=== PATIENT | female | born 1965 | race Asian ===

== ENCOUNTER 2019-08-28 07:58 | Outpatient (CLI) | payer OTHER, SELFPAY ==
--- NOTE | 2019-09-09 02:06 | SLEEP_ITS ---
CPAP Titration DATE OF STUDY: 08/28/2019 REASON FOR STUDY: Prior home sleep test July 24, showing moderate obstructive sleep apnea syndrome G47.33 with desaturation to 82%, AHI is 15.1. HISTORY: This patient is a 54-year-old female, 65 inches tall, weighing 155 pounds with a body mass index of 25.8. On July 24, 2019, a home sleep test showed an AHI of 5.1 with significant desaturation to 82% with over 1 hour of time spent below 88%. She has extreme daytime sleepiness. She presents now for a CPAP titration. MEDICAL COMORBIDITIES: Asthma, insomnia, multiple allergies. MEDICATIONS: 1. Astelin 137 mcg 2 sprays each nostril b.i.d. 2. Flovent HFA 110 mcg 1 puff twice a day. 3. Estradiol 0.0375 mg twice a week. 4. Vitamin D daily. 5. Calcium daily. HABITS: No history of tobacco. No caffeine or alcohol. No recreational drugs. DESCRIPTION OF THE STUDY: On the [place] Sleepiness Scale, her score was 20. This was conducted as an attended CPAP titration in the lab with the [employer] multiple channel system including EOG, EEG, submental EMG, EKG, nasal and oral airflow using thermistors and nasal pressure sensors, chest and abdominal belts for body position data, pulse oximetry, and video monitoring. The study was scored using CMS guidelines. Duration of the study was 419.9 minutes. Sleep time was 382.7 minutes. Sleep efficiency was 91.1%. Sleep latency was short at 2.7 minutes. No indication of a sleeping pill was documented. The REM latency was slightly short at 72.5 minutes. She had 22 awakenings. She spent 8.3% of the study awake after sleep onset 34.5 minutes. Sleep architecture showed 5.8% stage I sleep, 57.6% stage II sleep, 3.4% stage III sleep and 24.9% stage REM. The patient spent 67% of the study supine, the remainder was nonsupine. Sleep architecture was relatively normal with a short sleep latency, a short REM latency, 4 REM cycles, and consolidated sleep. The apnea-hypopnea index was 1.6, the obstructive index was 0.8 and the central index was 0.6. The patient had no events in supine REM. She had 1 central apnea and 1 obstructive hypopnea in nonsupine REM for an index of 1.8. She had 1 obstructive apnea and 3 central apneas, 1 mixed apnea and 2 obstructive hypopneas in supine non-REM for an index of 1.7. She had 1 obstructive hypopnea in nonsupine non-REM for an index of 1.7. The supine index was 1.5, nonsupine index 1.7. Lowest desaturation was 87% and the patient had less than a minute below 88%. She had 9 desaturations of 4% or greater for an index of 1.3. Mean saturation was 94.5%. This is significantly improved compared to baseline. AROUSALS: 79 arousals for an index of 11.3. There was 1 apnea for an index of 0.1, 1 hypopnea for an index of 0.1, 3 snores for an index of 0.4, 53 spontaneous for an index of 7.6, and 21 limb movements for an index of 3.0. LIMB MOVEMENTS: 89 limb movements for an index of 14. The patient had 1 periodic limb movement for an index of 0.2. EKG: Sinus rhythm, mean heart rate 61. No arrhythmia. EEG: Unremarkable. During this titration, the patient wore a small AirFit N10 nasal mask with heated humidity. She slept in the lateral and supine positions. REM was achieved. CPAP started at 5 and ended at 6 cm. At 6 cm, the patient spent 1 hour 24 minutes in bed, 31 minutes in REM, 48 minutes in non-REM, had 1 central apnea, 1 hypopnea for an index of 1.5. Sleep efficiency was 96%. IMPRESSION: 1. This full night CPAP titration shows an optimal pressure of 6 cm using a small AirFit N10 nasal mask and heated humidity. She had excellent sleep consolidation and elimination of events. She had profound hypoxemia on the initial study and this was eliminated during this study. We
== END 2019-08-28 07:59 | disposition home or self-care (01) ==
LOC: ANHCSM 07:59
PROVIDERS: PCP Family Medicine; Visit Provider Family Medicine
DX: G47.33 Obstructive sleep apnea (adult) (pediatric) (principal)
CPT/HCPCS: 95811

== ENCOUNTER → 2020-04-26 09:07 | Outpatient (CLI) | payer OTHER, SELFPAY ==
--- NOTE | ~2020-04-26 | CT_ITS ---
EXAMINATION: CT chest wo con DATE: 04/26/2020 09:24 INDICATION: Follow-up pulmonary nodules TECHNIQUE: Computed tomography (CT) of the chest was performed without intravenous contrast. The dose -length product was 233.83 mGy-cm. Automated exposure control and iterative reconstruction technique were employed. COMPARISON: CT dated 09/04/2018 FINDINGS: No significant pleural or pericardial effusion. No thoracic lymphadenopathy. The upper abdo men is unremarkable. There is a left upper lobe mass measuring 13 x 11 mm which is new compared with prior examination. No endobronchial lesions. Stable 7 mm nodule of the minor fissure, image 63. There is an 8 mm left lower lobe nodule, image 82, increased in size stable 3 mm pleural-based left upper lobe nodule, image 50.. There is a 4 mm nodule left lower lobe, image 82. There is a 3 mm perifissura l nodule of the right lower lobe superior segment, image 48, not seen on prior examination. No endobr onchial lesions are identified. IMPRESSION: 1. New 13 mm left upper lobe nodule. Enlarging 8 mm left lower lobe nodule. Additional bilateral pulm onary nodules are stable. Malignancy not excluded. Recommend follow-up percutaneous biopsy or PET/CT scan. Reviewed, dictated and finalized at location B. IMPRESSION: 1. New 13 mm left upper lobe nodule. Enlarging 8 mm left lower lobe nodule. Add itional bilateral pulmonary nodules are stable. Malignancy not excluded. Recomm end follow-up percutaneous biopsy or PET/CT scan.
== END ==
PROVIDERS: PCP Family Medicine; Visit Provider Family Medicine
DX: R91.1 Solitary pulmonary nodule (principal)
CPT/HCPCS: 71250

== ENCOUNTER 2021-04-07 14:36 | Outpatient (CLI) | payer OTHER, SELFPAY ==
--- NOTE | ~2021-04-07 | MM_ITS ---
EXAMINATION: MM screening [facility] BI w anum HISTORY: Screening TECHNIQUE: Craniocaudal and mediolateral oblique 3-D tomosynthesis images were obtained and synthetic 2-D images were generated. CAD analysis was submitted and interpreted. COMPARISON: Comparison to multiple prior studies sequentially, with oldest reviewed study dated 02/2015. BREAST PARENCHYMAL COMPOSITION: There are scattered areas of fibroglandular density. FINDINGS: There is no evidence of suspicious mass, calcification, or architectural distortion to sugg est malignancy in either breast. There has been no suspicious interval change. IMPRESSION: 1. No mammographic evidence of malignancy. 2. Recommend routine screening mammography in one year. BI-RADS Category 1: Negative Reviewed, dictated and finalized at location A.
== END 2021-04-07 14:37 | disposition home or self-care (01) ==
LOC: ANHIMG 14:51
PROVIDERS: PCP Family Medicine; Visit Provider Obstetrics & Gynecology
DX: Z12.31 Encounter for screening mammogram for malignant neoplasm of breast (principal)
CPT/HCPCS: 77063; 77067

== ENCOUNTER → 2021-12-01 14:08 | Outpatient (CLI) | payer OTHER, SELFPAY ==
--- NOTE | ~2021-12-01 | XR_ITS ---
EXAMINATION: XR chest 2V 12/01/2021 14:20 INDICATION: Shortness of breath PROCEDURE: 2 view chest COMPARISON: 19/11/2007 FINDINGS: The lungs are clear. The cardiomediastinal silhouette is within normal limits. There are no pleural effusions. There is no pneumothorax suspected. IMPRESSION: 1: NO ACUTE CARDIOPULMONARY DISEASE. Reviewed, dictated and finalized at location A.
== END ==
PROVIDERS: PCP Family Medicine; Visit Provider Family Medicine
DX: G47.34 Idiopathic sleep related nonobstructive alveolar hypoventilation (principal)
CPT/HCPCS: 71046

== ENCOUNTER → 2022-01-26 17:19 | Outpatient (CLI) | payer OTHER, SELFPAY ==
--- NOTE | ~2022-01-26 | XR_ITS ---
XR hip RT 2V w AP pelvis DATE: 01/26/2022 17:33 INDICATION: Right hip pain TECHNIQUE: AP pelvis. AP and lateral right hip. COMPARISON: None FINDINGS: Normal alignment at the pubic symphysis and sacroiliac joints. No pelvic fracture or bone d estruction. Hip joint spaces are symmetric and relatively preserved. No fracture, dislocation, avascular necrosis or bone destruction of the right hip. IMPRESSION: No significant abnormality Reviewed, dictated and finalized at location B. IMPRESSION: No significant abnormality
== END ==
PROVIDERS: PCP Family Medicine; Visit Provider Family Medicine
DX: M25.551 Pain in right hip (principal)
CPT/HCPCS: 73502

== ENCOUNTER 2022-06-21 09:00 | Outpatient (RCR) | payer OTHER, SELFPAY ==
--- NOTE | 2022-03-31 16:58 | PTOPEVAL1 ---
Assessment and note entered by Janneth Raegan, PT, DPT Evaluation Information Assessment Status Evaluation Diagnosis R hip pain Onset 1+ year Subjective Information Pt reports R hip pain that has been consistent for 1 year, worsening in the last couple of months. Pt reports popping and clicking in her anterior groin pain, this increases when she walks fast. Pt reports deep buttock pain when she sits for prolonged time. Pt states she feels uneven when she is walking. Reported Pain Level Pain Score 4: Self Report Assessment PT Clinical Summary Po presents to therapy today for her initial evaluation with a diagnosis of R hip pain. Today she demonstrates mildly decreased hip ROM including rotation and extension. She also demonstrates minor strength deficits of her hips globally. She ambulated with a shortened stride length, has a shuffled gait pattern with decreased heel clearance, and increased lateral pelvic sway . Po will benefit from skilled physical to address the deficits noted above, to improve pain, to limit impairment, and to return to her baseline function of unlimited mobility. Plan of Care Interventions Gait Training,Manual Therapy PT Services Indicated Yes Treatment Frequency and 1x/wk for 4 wks Duration These treatments will address the objective and functional deficits as defined above. The patient will be advanced safely and appropriately in order for the patient to progress towards his/her prior level of function. Additional exercises will be introduced and as well as a comprehensive home exercise program upon discharge, if needed, ?to ensure carryover of functional gains achieved in the clinic. This treatment plan has been reviewed and agreement upon by the patient.
--- NOTE | 2022-04-28 09:44 | PTOPDC ---
Assessment and note entered by Janneth Reagan, PT, DPT Evaluation Information Assessment Status Discharge Diagnosis R hip pain Onset 1+ year Subjective Information Pt states she things therapy is working, she states she feels much better and has less pain. Pt states she can sit for longer now before she feels a tightness in her buttock. She reports no pain at rest. She states the R leg still feels heavier when walking long distances, but it is still better. Reported Pain Level Pain Score 0: Self Report Assessment PT Clinical Summary Po presents to therapy today for her progress report following 4 visits of skilled thearpy to treat her diagnosis of R hip pain. Today she reports improvements in her hip pain as well as the popping sensations she was feeling. She demonstrates an improved gait pattern with a lengthened stride length and decreased pelvic motion. She continues to demonstrates weakness in her kennedy hip throughout but this is progressing. Throughout her treatments she continues to require moderate cueing to avoid substitutions. Pt would like to continue her HEP at home and follow up in a month. Plan of Care Interventions Gait Training,Manual Therapy PT Services Indicated Yes Treatment Frequency and follow up in one month Duration
--- NOTE | 2022-04-28 09:50 | PTOPPROG ---
Assessment and note entered by Janneth Reagan, PT, DPT Evaluation Information Assessment Status Progress Diagnosis R hip pain Onset 1+ year Subjective Information Pt states she things therapy is working, she states she feels much better and has less pain. Pt states she can sit for longer now before she feels a tightness in her buttock. She reports no pain at rest. She states the R leg still feels heavier when walking long distances, but it is still better. Assessment PT Clinical Summary Po presents to therapy today for her progress report following 4 visits of skilled thearpy to treat her diagnosis of R hip pain. Today she reports improvements in her hip pain as well as the popping sensations she was feeling. She demonstrates an improved gait pattern with a lengthened stride length and decreased pelvic motion. She continues to demonstrates weakness in her kennedy hip throughout but this is progressing. Throughout her treatments she continues to require moderate cueing to avoid substitutions. Pt would like to continue her HEP at home and follow up in a month. Plan of Care Interventions Gait Training,Manual Therapy PT Services Indicated Yes Treatment Frequency and follow up in one month Duration These treatments will address the objective and functional deficits as defined above. The patient will be advanced safely and appropriately in order for the patient to progress towards his/her prior level of function. Additional exercises will be introduced and as well as a comprehensive home exercise program upon discharge, if needed, ?to ensure carryover of functional gains achieved in the clinic. This treatment plan has been reviewed and agreement upon by the patient.
--- NOTE | 2022-06-21 09:56 | PTOPDC ---
Assessment and note entered by Janneth Reagan, PT, DPT Evaluation Information Assessment Status Discharge Diagnosis R hip pain Onset 1+ year Subjective Information Pt states she has felt great after her last therapy visit. She still gets intermittent popping and clicking pains in her hip. She states she still gets sore when she is walking for too long. She states 0/10 pain at rest, and 1/10 when moving . Reported Pain Level Pain Score 0: Self Report Assessment PT Clinical Summary Po presents to therapy today for her progress report following 6 visits of therapy and intermittent participation in her HEP. Today she reports poor compliance with her HEP in the last month. She reports 1/10 pain at its worst, and this is only with isolated hip abduction with ext rot. She continues to have minor weakness in her R glute med when compared to her L. Her home exercises were progressed and she was instructed to continue these regularly. Po is to be discharged from skilled therapy services at this time, she was instructed to follow up with her referring provider if symptoms worsen. Plan of Care PT Services Indicated No Treatment Frequency and to be discharged Duration
== END 2022-06-22 12:34 | disposition home or self-care (01) ==
LOC: ANHGOSHPT 09:00
PROVIDERS: PCP Family Medicine; Visit Provider Family Medicine
DX: M25.551 Pain in right hip (principal)
CPT/HCPCS: 97110; 97112; 97140; 97161; 97530

== ENCOUNTER → 2022-08-18 08:12 | Outpatient (CLI) | payer OTHER, SELFPAY ==
--- NOTE | ~2022-08-18 | CT_ITS ---
EXAMINATION: CT soft tissue neck chest w DATE: 08/18/2022 08:45 INDICATION: Left neck mass. TECHNIQUE: Computed tomography (CT) of the neck and chest was performed with 75 mL Omnipaque-350 intr avenous contrast. Automated exposure control and iterative reconstruction technique were employed. Th e dose-length product was 751.08 mGy-cm. COMPARISON: Chest CT 04/26/2020 FINDINGS: CT NECK: There is anteroposterior elongation of the ocular globes. There are likely changes of ocular lens replacement surgeries. There are no pathologically enlarged lymph nodes. There is 0% stenosis o f the proximal internal carotid arteries relative to normal distal artery lumen diameters. There is m oderate cervical spondylosis. CT CHEST: There is mild scarring at the lung apices. There is mild atelectasis bilaterally with a dep endent predominance. There are stable 7 mm and 5 mm nodules in right middle lobe. There is a stable 4 mm nodule in left lower lobe. No pleural effusion. The heart size is normal. No pericardial effusion . There is mild thoracic spondylosis. IMPRESSION: 1. No abnormal neck mass. 2. Stable pulmonary nodules, likely benign. Reviewed, dictated and finalized at location A. [employer]
== END ==
PROVIDERS: PCP Family Medicine; Visit Provider Obstetrics & Gynecology
DX: R91.8 Other nonspecific abnormal finding of lung field (principal)
CPT/HCPCS: 70491; 71260; Q9967

== ENCOUNTER 2022-11-27 08:34 | Outpatient (CLI) | payer OTHER, SELFPAY ==
[2022-11-27 09:54] LABS: Kit Draw Collected
== END 2022-11-27 08:35 | disposition home or self-care (01) ==
LOC: ANHGOSHLAB 08:36
PROVIDERS: PCP Family Medicine; Visit Provider Family Medicine
DX: Z00.00 Encounter for general adult medical examination without abnormal findings (principal); Z78.0 Asymptomatic menopausal state
CPT/HCPCS: 36415

== ENCOUNTER 2023-12-22 11:29 | Outpatient (CLI) | payer OTHER, SELFPAY ==
--- NOTE | ~2023-12-22 | MM_ITS ---
EXAMINATION: MM screening [facility] BI w anum HISTORY: Screening TECHNIQUE: Craniocaudal and mediolateral oblique 3-D tomosynthesis images were obtained and synthetic 2-D images were generated. CAD analysis was submitted and interpreted. COMPARISON: No prior mammogram is available for comparison at this institution. BREAST PARENCHYMAL COMPOSITION: Not dense: There are scattered areas of fibroglandular density. FINDINGS: There is no evidence of suspicious mass, calcification, or architectural distortion to sugg est malignancy in either breast. There has been no suspicious interval change. IMPRESSION: 1. No mammographic evidence of malignancy. 2. Recommend routine screening mammography in one year. BI-RADS Category 1: Negative Reviewed, dictated and finalized at location B.
== END 2023-12-22 11:30 | disposition home or self-care (01) ==
PROVIDERS: PCP Family Medicine; Visit Provider Obstetrics & Gynecology
DX: Z12.31 Encounter for screening mammogram for malignant neoplasm of breast (principal)
CPT/HCPCS: 77063; 77067

== ENCOUNTER 2024-01-18 07:33 | Outpatient (CLI) | payer OTHER, SELFPAY ==
--- NOTE | ~2024-01-18 | DEXA_ITS ---
Bone Density Report Name: LYNN HUFFMAN Age: 58 Sex: Female Ethnicity: White Date of : 1965 Indication: postmenopausal; screening for osteoporosis; asthma or emphysema; hysterectomy; Referring Provider: JIMMIE MOHAN Study: Bone densitometry was performed. Exam Date: January 18, 2024 Accession number: [id number] Bone Density: Region BMD T-score Z-score Classification AP Spine(L1-L4) 1.122 0.7 1.9 Normal Femoral Neck (Left) 0.738 -1.0 0.1 Normal Total Hip (Left) 0.928 -0.1 0.7 Normal Femoral Neck (Right) 0.736 -1.0 0.1 Normal Total Hip (Right) 0.949 0.1 0.8 Normal Total Hip Mean 0.939 0.0 0.8 Normal World Health Organization criteria for BMD impression classify patients as: Normal (T-score at or above -1.0), Osteopenia (T-score between -1.0 and -2.5), or Osteoporosis (T-score at or below -2.5). 10-year Fracture Risk: FRAX not reported because: All T-scores for Spine Total, Hip Total, Femoral Neck at or above -1.0 Clinical Information Provided by Patient: Has used the following medications: Vitamin D Has the following medical conditions: Asthma or Emphysema, Hysterectomy Patient maximum height was 65 Menopause Age: 45 Does not regularly consume dairy products Drinks caffeinated beverages Onset of menses at age 14 Number of children 3 Impression: The patient has normal bone mass. Discussion: BONE DENSITY IS ABOVE THE MINIMUM DESIRABLE LEVEL AT ALL SKELETAL SITES TESTED. This patient?s bone mineral density is above the minimum desirable level (T-score -1.0 or better) at all sites measured. The patient should follow a healthful lifestyle (good nutrition with adequate calcium and vitamin D, and appropriate weight-bearing exercise). Follow-Up: Consider repeating this study in 5 years or sooner if there is some new clinical indication. Reported by: MARCELO on 01/18/2024 8:02:00 AM. Reviewed, dictated and finalized at location AMarianna CUEVA
== END 2024-01-18 07:34 | disposition home or self-care (01) ==
LOC: ANHIMG 07:34
PROVIDERS: PCP Family Medicine; Visit Provider Family Medicine
DX: Z78.0 Asymptomatic menopausal state (principal); Z13.820 Encounter for screening for osteoporosis
CPT/HCPCS: 77080

== ENCOUNTER 2025-02-20 08:03 | Outpatient (CLI) | payer OTHER, SELFPAY ==
--- NOTE | ~2025-02-20 | MM_ITS ---
EXAMINATION: MM screening erika BI w anum HISTORY: Screening TECHNIQUE: Craniocaudal and mediolateral oblique 3-D tomosynthesis images were obtained and synthetic 2-D images were generated. CAD analysis was submitted and interpreted. COMPARISON: Comparison to multiple prior studies sequentially, with oldest reviewed study dated 04/01. BREAST PARENCHYMAL COMPOSITION: Not dense: There are scattered areas of fibroglandular density. FINDINGS: There is no evidence of suspicious mass, calcification, or architectural distortion to sugg est malignancy in either breast. There has been no suspicious interval change. IMPRESSION: 1. No mammographic evidence of malignancy. 2. Recommend routine screening mammography in one year. BI-RADS Category 1: Negative Reviewed, dictated and finalized at location A.
--- OUTSIDE RECORDS SUMMARY | 2025-02-20 08:09 | XMS_ITS | Patient Health Record ---
Author Organization [facility] [place] Address [address] [facility] [address] [place] [address] Care Team Providers Care Guest Room Inspector Name Role Phone Nelson Leong Unavailable [phone] Reason For Referral No Information Medications Medication SIG (Take, Route, Frequency, Duration) Notes Start Date End Date Status buPROPion HCl ER (SR) 100 MG Oral Active Plan Of Treatment No Information
--- OUTSIDE RECORDS SUMMARY | 2025-02-20 08:09 | XMS_ITS | Clinical Summary ---
Author Organization [facility] [place] [address] Address [address] [place] [address] Care Team Providers Care Tank Washer Name Role Phone Nohemy Grant MD Primary Care Provider + Allergies Active Allergy Reactions Criticality Noted Date Comments Beclomethasone Dipropionate Unknown 09/06/19 12 Levofloxacin Swelling Medium Mometasone-Formoterol Unknown 09/06/2011 Medications cetirizine (ZyrTEC) 10 mg tablet Take 10 mg by mouth daily Active fluticasone propionate (FLONASE) 50 mcg/actuation nasal spray USE 1 TO 2 SPRAY(S) IN EACH NOSTRIL TWICE DAILY NEEDED 3 9 Active raNITIdine (ZANTAC) 300 mg tablet Take 300 mg by mouth daily Active docosahexaenoic acid/epa (FISH OIL ORAL) Take by mouth Active azelastine-flut icasone 137-50 mcg/spray spray,non-aeros ol Administer into affected nostril(s) 2 (two) times a day Active fluticasone propionate (FLOVENT HFA) 110 mcg/actuation inhaler Inhale 1 puff 2 (two) times a day Rinse mouth with water after use. Do not swallow. Active cholecalciferol (VITAMIN D-3) 25 mcg (1,000 unit) tablet Take 1,000 Units by mouth daily Active vitamin B complex capsule Take 1 capsule by mouth daily Active estradioL (ESTRACE) 0.01 % (0.1 mg/gram) vaginal cream Apply nightly to vagina for 1 week, then Sunday// Sunday 42.5 g 5 5 04/29/20 25 Active Active Problems Patient Care Coordination No te Formatting of this note migh t be different from the original. Referring provider: Dr. Nohemy Grant Ms. Po Jaime is a 55-year-old with a lung nodule. Patient was being followed for indeterminate lung nodules. On 04/26/2020 the patient underwent a chest CT without contrast which noted a new indeterminate rounded nodule in the left upper lobe measuring 1.3 x 0.8 cm. Additional findings include a 2 mm right lower lobe lung nodule, a 4 mm right lower lobe lung nodule and an additional cluster of tiny nodules in the right lower lobe. There was a 7 mm left lower lobe lung nodule that had slightly increased when compared to imaging in 2011 and a 2 mm nodule that is unchanged. Patient is a never smoker. Patient is scheduled for a PET scan and pulmonary function testing prior to her appointment today. Patient presents today for further surgical evaluation. Review of systems: General: Positive for chills and tiredness. Genitourinary: Positive for nighttime urination and nipple discharge. Skin: Positive for lumps. EENT: Positive for stuffy nose, postnasal drip and sinus problems. Endocrine: Positive for excessive thirst. Gastrointestinal: Positive for nausea/vomiting. Cardiovascular: Positive for heart palpitations, irregular heartbeat, wakes up at night short of breath. Psychiatric: Positive for anxiety, difficulty in going to sleep, loss of sleep and brick shader awakening. Neurologic: Positive for headaches. Respiratory: Positive for asthma, wheezing, dry cough, coughing up phlegm, shortness of breath at rest and shortness of breath with exertion. All other systems reviewed and are negative. Problem Noted Date Diagnosed Date Vaginal dryness 09/24/2024 Assessment & Plan (09/24/2024 5:54 PM CDT): Options were discussed along with risk and benefits She is going to try vaginal estrogen Use was reviewed. Decreased libido 09/24/2024 Assessment & Plan (09/24/2024 5:56 PM CDT): Will see how she is feeling once the vaginal dryness resolves. Mass in neck 07/24/2022 Overview (07/24/2022): 2cm x 1.5cm mass superior to the left clavicle Assessment & Plan (07/24/2022 5:13 PM LIQUEFIED NATURAL GAS OPERATOR): To ct of neck as per radiologist recommendation To call 1 week after if she has not heard from me with her results I suspect it is a lymph node. Rash of face 07/24/2022 Assessment & Plan (07/24/2022 5:14 PM LIQUEFIED NATURAL GAS OPERATOR): At first I thought it was just acne, but there is no inflammation. To derm Lipoma of abdominal wall 07/24/2022 Overview (07/24/2022): Back of right arm 3x2 cm llq 1cm. Firm like a marble. Assessment & Plan (07/24/2022 5:16 PM LIQUEFIED NATURAL GAS OPERATOR): Will follow. Dizziness 07/24/2022 Assessment & Plan (07/24/2022 5:17 PM LIQUEFIED NATURAL GAS OPERATOR): She was encouraged to drink plenty of water To f/u with pcp. Well woman exam 06/12/2022 Overview (06/12/2022): Lab: Pap:all normal Labs with pcp Ney:needs Colonoscopy:2018 BMD: Gardasil: Assessment & Plan (09/24/2024 5:53 PM CDT): Complete exam done. Assessment & Plan (06/12/2022 4:50 PM LIQUEFIED NATURAL GAS OPERATOR): Pap done. RTO 12m. I will send the results to the portal. If she has not heard in a week, to call the office. Hormone replacement therapy (HRT) 06/12/2022 Overview (06/12/2022): She is doing well on frt patches, but having some skin irritation Will try oral. Assessment & Plan (09/24/2024 5:55 PM CDT): Will see how she does with vaginal estrogen first She is not sure if she would be interested in going back on oral/patch or not. Assessment & Plan (07/24/2022 5:19 PM LIQUEFIED NATURAL GAS OPERATOR): She will continue on this dose for a while longer and let me know if she wants to increase. Assessment & Plan (06/12/2022 4:50 PM LIQUEFIED NATURAL GAS OPERATOR): She will call if she doesn't like oral and wants to go back to pills. Acute suppuration of paranasal sinus 07/13/2011 Cough 07/13/2011 Candidiasis of mouth 08/02/2010 Lung nodule Immunizations Immunization Administration Dates Next Due Influenza, Quadrivalent, Spl it, Preservative Free, Intramuscular 04/04/2018 Influenza, Trivalent, IM (MDV) 9,04/20/2017,04/11/2016,04/13 Surgical History Surgery Date Site/Laterality Comments SECTION Section - (Added by TW Conv) CATARACT EXTRACTION Cataract Surgery - (Added by TW Conv) TOTAL ABDOMINAL HYSTERECTOMY 07/09/2009 - 07/08/2010 Hysterectomy - (Added by TW Conv) OOPHORECTOMY 07/09/2009 - 07/08/2010 Left Medical History Medical History Date Comments Asthma Personal history of asthma - (Added by TW Conv) Endometriosis Seasonal allergies Sleep apnea Family History Medical History Relation Name Comments Heart disease Father Hyperlipidemia Father Hypertension Father Heart disease Other Heart Disease - (Added by TW Conv) Cancer Neg Hx pt states no fa henrik history of colon, breast, or reproductive cancer sng 09/01/24 Relation Name Status Comments Father Mother Other Social History Tobacco Use Types Packs/Day Years Used Date Smoking Tobacco: Never Smokeless Tobacco: Never Comments:No street drugs or mj. Alcohol Use Standard Drinks/Week Comments Never 0 (1 standard drink = 0.6 oz pur e alcohol) Humiliation, Afraid, Rape, and Kick questionnair e Answer Date Recorded Within the last year, have y ou been afraid of your partner or ex-partner? No 09/01/2024 Within the last year, have y ou been humiliated or emotionally abused in other ways by your partner or ex-partner? No Within the last year, have y ou been kicked, hit, slapped, or otherwise physically hurt by your partner or ex-partner? No 09/01/2024 Within the last year, have y ou been raped or forced to have any kind of sexual activity by your partner or ex-partner? No 09/01/2024 AUDIT-C Answer Date Recorded Q1: How often do you have a drink containing alcohol? Never 06/12/2022 Q2: How many drinks containi ng alcohol do you have on a typical day when you are drinking? Patient does not drink Q3: How often do you have si x or more drinks on one occasion? 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 on file Not on file Not on file Obstetrics History Para Term AB IAB SAB Ectopic Multiple Livin g Live Births 3 3 3 3 3 Date Outcome GA Total Labor Labor/2nd/3rd Weight Sex Type Anes PTL Joan A1 A5 Name Clin 11/24 94 Term 3.317 kg (7 lb 5 oz) F CS-LT ranv Epidura l Living Complications:None 06/27 01 Term 3.629 kg (8 lb) M Vag-S pont Epidura l Living Complications:None 12/26 02 Term 3.175 kg (7 lb) F Vag-S pont Epidura l Living Complications:None Last Filed Vital Signs Vital Sign Reading Time Taken Comments Blood Pressure 118/68 09/01/2024 1:18 PM LIQUEFIED NATURAL GAS OPERATOR Pulse 67 07/24/2022 1:11 PM LIQUEFIED NATURAL GAS OPERATOR Temperature 36.5 C (97.7 F) 05/06/2020 1:05 PM CDT Respiratory Rate 18 09/09/2020 12:38 PM LIQUEFIED NATURAL GAS OPERATOR Oxygen Saturation 96% 09/09/2020 12:38 PM LIQUEFIED NATURAL GAS OPERATOR Inhaled Oxygen Concentration - - Weight 71.2 kg (157 lb) 09/01/2024 1:18 PM LIQUEFIED NATURAL GAS OPERATOR Height 165.1 cm (5' 5) 09/01/2024 1:18 PM LIQUEFIED NATURAL GAS OPERATOR Body Mass Index 26.13 09/01/2024 1:18 PM LIQUEFIED NATURAL GAS OPERATOR Plan of Treatment Health Maintenance Due Date Last Done Comments Colon Cancer Screening-Colonoscopy 1967 Hepatitis C Screening 1967 DTaP/Tdap/Td Vaccine (1 - Tdap) 1978 Hepatitis B Screening 1985 Zoster Vaccine (1 of 2) 2017 Breast Cancer Screening-Mammogram 11/01/2023 10/31/2022, 06/19/2013 Influenza Vaccine (#1) 2025 9, 04/04/2018, 04/20/2017, Additional history exists Depression Screening 09/01/2025 09/01/2024, 06/12/20 22 Regular Well Visit/Exam 18-64 09/01/2025 09/01/2024, 06/12/2022, 12/21/2020, Additional history exists Pneumococcal vaccine <65 Aged Out No longer eligible based on patient's age to complete this topic Procedures Procedure Name Priority Date/Time Associated Diagnosis Comments SCREENING MAMMOGRAM BILATERAL W MICHAEL Schedule Routine, Read Routine (OP Routine) 10/31/2022 Screening mammogram for breast cancer from Last 3 Months or Most Recently Relevant to Health Maintenance Results * Screening Mammogram Bilateral W Michael (10/31/2022) Anatomical Region Laterality Modality Breast Bilateral Mammography Nga Scott MD IMG MAMMO PROCEDURE S Final Result from Last 3 Months or Most Recently Relevant to Health Maintenance [facility] [id number] [facility] [id number] Care Teams Tank Washer Relationship Specialty Start Date End Date Nohemy Grant MD PCP - General Family Medicine 07/26/18
--- OUTSIDE RECORDS SUMMARY | 2025-02-20 08:09 | XMS_ITS | Clinical Summary ---
Author Organization [facility] Address [address] [place] [address] Care Team Providers Care Epic Specialist Name Role Phone Nohemy Grant MD Primary Care Provider [phone] Source Comments [facility],non-owned Affiliates and Associated Physician Practices is amultiple site organization consisting of ambulatory clinics and hospital sitesin [place], [place], [place] and [place]. This disclosure is being madepursuant to the Care Everywhere program and may not contain all information available regarding this patient. Last updated 18.[facility] Allergies No known active allergies Medications * Be aware that medications may not be up to date on this document. Alwaysverify current medications with the patient. cetirizine (ZYRTEC) 10 MG tablet Take 10 mg by mouth once daily. Active ranitidine (ZANTAC) 300 MG tablet Take 300 mg by mouth once daily. Active mometasone (NASONEX) 50 MCG/ACT nasal spray [place] 1 [place] into each nostril 2 times daily. Active Immunizations Immunization Administration Dates Next Due INFLUENZA VACCINE, QUADR. (F LUZONE; FLULAVAL; FLUARIX; AFLURIA QUADRIVALENT; 6MO+), 0.5 ML (IIV4) 04/21/2021 Family History Medical History Relation Name Comments Heart Failure Father Stroke Father Relation Name Status Comments Father Alive Mother Alive Social History Tobacco Use Types Packs/Day Years Used Date Smoking Tobacco: Never Alcohol Use Standard Drinks/Week Comments No 0 (1 standard drink = 0.6 oz pur e alcohol) Comments Unknown Sex and Gender Information Value Date Recorded Sex Assigned at Not on file Legal Sex Female 6:25 AM TROLLEY OPERATOR Gender Identity Not on file Sexual Orientation Not on file Occupation Industry Job Start Date Job End Date Homemaker Not on file Not on file Not on file Last Filed Vital Signs Vital Sign Reading Time Taken Comments Blood Pressure - - Pulse - - Temperature - - Respiratory Rate - - Oxygen Saturation - - Inhaled Oxygen Concentration - - Weight 75.3 kg (166 lb) 09/06/2011 9:19 AM TROLLEY OPERATOR Height 162.6 cm (5' 4) 09/06/2011 9:19 AM TROLLEY OPERATOR Body Mass Index 28.49 09/06/2011 9:19 AM TROLLEY OPERATOR Plan of Treatment Health Maintenance Due Date Last Done Comments COLOGUARD (AGES 45-75) - COLON CA SCREENING 1967 COLON MONITORING 1967 COLONOSCOPY - COLON CA SCREENING 1967 CT COLONOGRAPHY - COLON CA SCREENING 1967 Colorectal Cancer Screening 1967 FIT - COLON CA SCREENING 1967 FLEX SIG - COLON CA SCREENING 1967 LIPID TESTING 1967 MAMMOGRAM 1967 HIV SCREENING 1982 HEPATITIS C SCREENING 02/28/1985 DTAP/TDAP/TD VACCINES (1 - Tdap) 1986 HEPATITIS B VACCINE (1 of 3 - 19+ 3-dose series) 1986 PNEUMOCOCCAL VACCINE 50+ (1 of 1 - PCV) 2017 ZOSTER VACCINE (1 of 2) 2017 COVID-19 VACCINE (3 - season) 2024 10/01/2020, 09/10/2020 DEPRESSION SCREENING 07/09/2024 INFLUENZA VACCINE (#1) 2025 , 07/10/2018, 04/04/2018, Additional history exists HIB VACCINE Aged Out No longer eligi ble based on patient's age to complete this topic HPV VACCINE Aged Out No longer eligi ble based on patient's age to complete this topic MENINGOCOCCAL (Group B) VACCINE SHARED DECISION-MAKING Aged Out No longer eligible based on patient's age to complete this topic MENINGOCOCCAL GROUPS A/C/Y/W VACCINE Aged Out No longer eligible based on patient's age to complete this topic Insurance [employer] Care Teams Epic Specialist Relationship Specialty Start Date End Date Nohemy Grant MD [address] [place] [id number] PCP - General Family Medicine 09/06/11
--- OUTSIDE RECORDS SUMMARY | 2025-02-20 08:09 | XMS_ITS | Continuity of Care Document ---
Author Organization [facility] [place] [address] [place] [address] Phone Care Team Providers Care Dyed Yarn Operator Name Role Phone Luc Reed Unavailable Unavailable Procedures Procedure Date Office/outpatient Visit, Est Office/outpatient Visit, Est Office/outpatient Visit, Est Eye Exam, New Patient Advance Directives Directive Yes / No Effective Date File Name No Information Encounters Encounter Description Practice Location Reason(s) For Visit Diagnoses Date Provider Providers Copied on Encounter Office/outpat ient Visit, [facility] [place], [address] [place] [address] [address], [place], [place], [id number], tel:[phone] [facility] No Information [address] , [address], [place], [place], [facility], [place]. tel:[phone] Office/outpat ient Visit, [facility] [place], [address], [place], [place], [id number], [place] tel:[phone] [facility] No Information [address] , [address], [place], [place], [facility], . tel:[phone] Office/outpat ient Visit, [facility] [place], [address] [place] [address] [address], [place], [place], [id number], [place] tel:[phone] [facility] No Information [address] , [address], [place], [address], . tel:[phone] [facility], [address], [place], [place], [id number], [place] tel:[phone] [facility] No Information [address] , [address], [place], [address], [place]. tel:[phone] Family History Family Member Type Diagnosis Age At Onset No Information Payers Payer name Insurance type Covered alliance party ID Authoriza tion(s) No Information Social History Type Description Quantity Date Captured Comments Sex Female Smoking Status No Information Chief Complaint And Reason For Visit No Information Reason For Referral Reason For Referral No Information History Of Present Illness Encounter Date Complaint History Of Prese nt Illness No Information Functional Status Date Functional Assessmen t No Information Instructions Date Instruction Additional Infor mation No Information Assessments Type Assessment Date No Information Patient Care Teams Name Effective Dates (start - stop) Status Members No Information
== END 2025-02-20 08:04 | disposition home or self-care (01) ==
LOC: ANHIMG 08:05
PROVIDERS: PCP Obstetrics & Gynecology; Visit Provider Family Medicine
DX: Z12.31 Encounter for screening mammogram for malignant neoplasm of breast (principal)
CPT/HCPCS: 77063; 77067